=== PATIENT | female | born 1965 | race Caucasian/White ===

== ENCOUNTER 2022-09-28 05:12 | Inpatient (IN) | payer MEDICAID ==
[2022-09-21 16:05] LABS: BASOPHILS # (AUTO) 0.1 X10'3 (0-0.2); BASOPHILS % (AUTO) 1.2 % (0-1); EOSINOPHILS # (AUTO) 0.2 X10'3 (0-0.9); EOSINOPHILS % (AUTO) 3.2 % (0-6); LYMPHOCYTES % (AUTO) 33.6 % (21-51); MEAN CORPUSCULAR HEMOGLOBIN 29.6 PG (27.0-31.0); MEAN CORPUSCULAR HGB CONC 33.3 g/dL (33.0-36.5); MEAN CORPUSCULAR VOLUME 89.1 FL (78-98); MEAN PLATELET VOLUME 8.2 FL (7.4-10.4); MONOCYTES # (AUTO) 0.5 X10'3 (0-0.9); MONOCYTES % (AUTO) 9.5 % (2-12); NEUTROPHILS # (AUTO) 3.1 X10'3 (1.8-7.7); NEUTROPHILS % (AUTO) 52.5 % (42-75); PRE OP HEMATOCRIT 44.3 % (35.0-45.0); PRE OP HEMOGLOBIN 14.8 g/dL (12.0-16.0); PRE OP PLATELET COUNT 264 X10'3 (140-440); RED BLOOD COUNT 4.98 X10'6 (4.20-5.60); RED CELL DISTRIBUTION WIDTH 12.8 % (11.5-14.5)
[2022-09-21 16:18] LABS: ALBUMIN 4.4 G/DL (3.4-5.0); ALBUMIN/GLOBULIN RATIO 1.3 (1.1-1.5); ALKALINE PHOSPHATASE 69 IU/L (46-116); BLOOD UREA NITROGEN 18 MG/DL (7-18); BUN/CREATININE RATIO 20.9 (10.0-20.0); CALCIUM 9.3 MG/DL (8.5-10.1); CHLORIDE 105 MMOL/L (99-107); CREATININE 0.86 MG/DL (0.40-0.90); PRE OP ALT 25 U/L (30-65); PRE OP ANION GAP 11 (8-16); PRE OP AST 20 U/L (10-37); PRE OP BILIRUB, TOTAL 0.6 MG/DL (0.0-1.0); PRE OP GLUCOSE 82 MG/DL (70-104); PRE OP POTASSIUM 4.6 MMOL/L (3.4-5.1); PRE OP SODIUM 142 MMOL/L (135-145); TOTAL CARBON DIOXIDE 26.4 MMOL/L (24-32); TOTAL PROTEIN 7.8 G/DL (6.4-8.2); eGFR 68 ML/MIN
[2022-09-28] VITALS (20 sets, daily range): BP systolic 84–129; BP diastolic 50–91
[~2022-09-28] VITALS: Ht 160 cm; Wt 70.9 kg
[~2022-09-28 05:12] MED LIST: ASPI-1071 PO; CALC250T2 PO; CALC3.8S BOTHNARES; CYAN1TAB65 PO; FLUT16SP20 BOTHNARES; HYDR-3965 PO; IBUP-1984 PO; MULT-1085 PO; ringers solution, lacted 1,000 ML IV SCH
[2022-09-28] MEDS ORDERED: metoclopramide 5 mg/ml inj IV ONE (05:30)
[2022-09-28] MEDS ORDERED: acetaminophen 325mg tablet PO ONE (05:30)
[2022-09-28] MEDS ORDERED: tranexamic acid inj. 1,000 MG in normal saline IV soln 100ML IV ONE (05:30)
[2022-09-28] MEDS ORDERED: cefazolin 2gm/D5W 100mL 100 ML IV ONE (05:30)
[2022-09-28] MEDS ORDERED: vancomycin/NS 1 GM in NS 250 ML IV ONE (05:30)
[2022-09-28] MEDS ORDERED: celeCOXIB 100mg capsule PO ONE (05:30)
[2022-09-28] MEDS ORDERED: gabapentin 300mg capsule PO ONE (05:30)
[2022-09-28] MEDS ORDERED: oxyCODONE SR 10mg (sust. release) tab -2 tabs (20mg) PO ONE (05:30)
[2022-09-28] MEDS ORDERED: famotidine 20mg tablet PO ONE (05:30)
--- NOTE | 2022-09-28 05:30 | NUR ---
CSM: Pedal pulses present and marked. Mupirocin cream was not ordered for this patient. Patient read the brochure. Educated patient on the use of the IS and its importance. Hibiclens used for 5 days.
[2022-09-28] MEDS ORDERED: vancomycin 1,000mg inj ONE (06:40)
[2022-09-28] MEDS ORDERED: cloNIDine hcl/PF 100mcg/ml inj ONE (07:08)
[2022-09-28] MEDS ORDERED: fentaNYL/PF 50MCG/1 ML 2ML syringe ONE (07:10)
[2022-09-28] MEDS ORDERED: MIDAZolam 1 MG/ML 5ML VIAL ONE (07:11)
[2022-09-28] MEDS ORDERED: diphenhydrAMINE 25mg capsule PO PRN ×2 (07:25)
[2022-09-28] MEDS ORDERED: acetaminophen 325mg tablet PO PRN (07:25)
[2022-09-28] MEDS ORDERED: naloxone 0.4 mg/ml inj IV PRN (07:25)
[2022-09-28] MEDS ORDERED: magnesium hydroxide 30ml (MOM) UD suspension PO PRN (07:25)
[2022-09-28] MEDS ORDERED: HYDROcodone/acetaminophen 10/325mg tab PO PRN (07:25)
[2022-09-28] MEDS ORDERED: ondansetron/PF 4mg/2ml inj IV PRN ×2 (07:25→08:10)
[2022-09-28] MEDS ORDERED: HYDROmorphone inj. 0.5 MG/0.5 ML DISP.SYRIN IV PRN (07:25)
[2022-09-28] MEDS ORDERED: bisacodyl 10mg suppository rectal RC PRN (07:25)
[2022-09-28] MEDS ORDERED: meperidine/PF 25mg/ml syringe IV PRN ×3 (08:10)
[2022-09-28] MEDS ORDERED: proCHLORperazine 10 MG/2 ml inj IV PRN (08:10)
[2022-09-28] MEDS ORDERED: morphine 4 MG/ML inj SYRINge IV PRN (08:10)
[2022-09-28] MEDS ORDERED: ROPIVAcaine 0.2% (10 MG/5 ML) BOLUS INJECTION ADDCANAL PRN (08:10)
[2022-09-28] MEDS ORDERED: ringers solution, lacted 1,000 ML IV SCH (08:10)
[2022-09-28] MEDS ORDERED: morphine 2 MG/ML inj. syringe IV PRN (08:10)
[2022-09-28] MEDS ORDERED: ePHEDrine 50MG/ML INJ. ONE (08:41)
[2022-09-28] MEDS ORDERED: ROPIVAcaine 0.5% (5mg/ml) 30ml vial ONE (08:41)
[2022-09-28] MEDS ORDERED: propofol inj 20 ML IV ONE (08:41)
[2022-09-28] MEDS ORDERED: dexamethasone sod phosphate 4mg/ml inj. ONE (08:41)
--- NOTE | 2022-09-28 09:05 | NUR ---
Received from OR via HOSPITAL BED TO RR 7, accompanied by Anesthesiologist DR DOHERTY and report given by Anesthesiolgist. PT PRESENTS WITH 20G RIGHT HAND, LR RUNNING AT 100MLS/HR, RIGHT LEG SILVER WRAP WITH LATOSHA DRESSING AND ON-Q READYK POWDER PACK. PEDAL PULSE PALPABLE ON RIGHT FOOT, SPO2 95 3L NASAL CANULA, VSS. Addendum: 09/28/22 at 2812 by Yael Ivey RN, RN Amended: Links added.
[2022-09-28] MEDS: ROPIVAcaine 0.2%/PF PUMP/bolus 545 ML ADDCANAL SCH (09:41)
--- NOTE | 2022-09-28 10:25 | NUR ---
Report called to receiving nurse HOANG ABBASI. Transferred via HOSPITAL BED TO ROOM 401. BED IN LOW LOCKED POSITION WITH CALL LIGHT IN REACH. PT HOOKED UP TO BEDSIDE VITALS MACHINE. TWO PT Belongings BAGS, 1 CANE, 1 BLACK BAG, FULL UPPER AND PATIAL LOWER DENTUR, AND GLASSES. CHART TAKEN TO NURSES STATION. Special Issues communicated to receiving nurse. Addendum: 09/28/22 at 1041 by Yael Ivey RN RN Amended: Links added.
--- NOTE | 2022-09-28 10:45 | NUR ---
Patient in room PAS IN 900. I have received report from aliya ABBASI and had the opportunity to ask questions and assume patient care.
[2022-09-28] MEDS ORDERED: tranexamic acid inj. 700 MG in normal saline 100ml IV soln 93 ML IV ONE (12:00)
--- NOTE | 2022-09-28 12:02 | NUR ---
Received from OR via HOSPITAL BED TO RR 7, accompanied by Anesthesiologist DR JUSTICE and report given by Anesthesiolgist. PT PRESENTS WITH PIV 20G RIGHT WRIST, ART LINE LEFT WRIST, [id number]% 6L MASK, LR RUNNING AT 100MLS/HR, RIGHT PEDAL PULSE PALPABLE, RIGHT GROIN SOFT NON TENDER, VSS. Addendum: 09/28/22 at 1220 by Yael Ivey RN, RN Amended: Links added.
[2022-09-28] MEDS: HYDROcodone/acetaminophen 10/325mg tab PO PRN (13:14)
[2022-09-28] MEDS: potassium cl 20mEq in 1/2 NS 1,000 ML IV SCH ×2 (13:14→19:00)
[2022-09-28] MEDS: ceFAZolin/D5W- 1GM premix 50 ML IV SCH (17:35)
[2022-09-28] MEDS: HYDROmorphone 1 mg/ml syringe IV PRN ×2 (17:35→21:50)
--- NOTE | 2022-09-28 18:30 | NUR ---
Patient in room ORTHO 4015. I have received report from AYLEEN Eaton and had the opportunity to ask questions and assume patient care.
--- NOTE | 2022-09-28 18:30 | NUR ---
Patient in room ORTHO 4015. I have received report from AYLEEN Eaton and had the opportunity to ask questions and assume patient care.
--- NOTE | 2022-09-28 19:06 | NUR ---
patient stable medicated for pain see EMAR. Report given to Jada ABBASI
[2022-09-28] MEDS ORDERED: vancomycin/NS 1 GM ADD-VANTAGE 250 ML IV SCH (20:00)
[2022-09-28] MEDS: ascorbic acid 500mg tablet PO SCH (20:28)
[2022-09-28] MEDS: gabapentin 300mg capsule PO SCH (20:28)
[2022-09-28] MEDS ORDERED: sennosides 8.6mg tablet PO SCH (21:00)
[2022-09-29] MEDS: ceFAZolin/D5W- 1GM premix 50 ML IV SCH (00:10)
[2022-09-29 01:46] VITALS: BP 109/69
[2022-09-29] MEDS: potassium cl 20mEq in 1/2 NS 1,000 ML IV SCH ×2 (02:50→05:57)
[2022-09-29] MEDS: HYDROcodone/acetaminophen 10/325mg tab PO PRN ×3 (04:08→15:14)
[2022-09-29 06:00] VITALS: BP 117/59
--- NOTE | 2022-09-29 06:26 | NUR ---
Problems reprioritized. Patient report given, questions answered & plan of care reviewed with AYLEEN Munoz.
--- NOTE | 2022-09-29 06:30 | NUR ---
Patient in room ORTHO 4015. I have received report from AYLEEN Elias and had the opportunity to ask questions and assume patient care.
--- NOTE | 2022-09-29 06:40 | NUR ---
Problems reprioritized. Patient report given, questions answered & plan of care reviewed with AYLEEN Munoz.
[2022-09-29 07:38] LABS: BASOPHILS % (AUTO) 0.2 % (0-1); EOSINOPHILS % (AUTO) 0.5 % (0-6); HEMATOCRIT 37.1 % (35.0-45.0); HEMOGLOBIN 12.2 g/dl (12.0-16.0); LYMPHOCYTES # (AUTO) 1.7 X10'3 (1.1-4.8); LYMPHOCYTES % (AUTO) 19.2 % (21-51); MEAN CORPUSCULAR HEMOGLOBIN 29.6 PG (27.0-31.0); MEAN CORPUSCULAR VOLUME 89.9 FL (78-98); MONOCYTES % (AUTO) 10.8 % (2-12); NEUTROPHILS # (AUTO) 6.2 X10'3 (1.8-7.7); NEUTROPHILS % (AUTO) 69.3 % (42-75); PLATELET COUNT 209 X10'3 (140-440); RED BLOOD COUNT 4.13 X10'6 (4.20-5.60); RED CELL DISTRIBUTION WIDTH 13.3 % (11.5-14.5)
[2022-09-29] MEDS ORDERED: fluticasone nasal spray 16GM bottle NS SCH (08:00)
[2022-09-29] MEDS ORDERED: calcitonin, salmon,Synth Nasal spray 200 units/actuation NS SCH (08:00)
[2022-09-29 08:13] LABS: ANION GAP 12 (8-16); CHLORIDE 107 MMOL/L (99-107); POTASSIUM 4.4 MMOL/L (3.5-5.1); SODIUM 141 MMOL/L (135-145)
[2022-09-29] MEDS: ascorbic acid 500mg tablet PO SCH ×2 (08:48→20:00)
[2022-09-29] MEDS: gabapentin 300mg capsule PO SCH ×3 (08:48→21:00)
[2022-09-29] MEDS: multivitamins, therapeutics tablet PO SCH (08:48)
[2022-09-29] MEDS: aspirin 325mg tablet PO SCH (08:48)
[2022-09-29] MEDS: docusate sod 100mg capsule PO SCH ×2 (08:50→20:00)
[2022-09-29] MEDS: HYDROmorphone 1 mg/ml syringe IV PRN ×3 (08:58→17:09)
[2022-09-29 10:00] VITALS: BP 95/64
--- NOTE | 2022-09-29 11:12 | NUR ---
Per EMR pt s/p right TKA. Written high protein nutrition therapy education with ONS coupons and RD contact information mailed to patient's home address found in EMR d/t short staffing. Will f/u for verbal education as able. Addendum: 09/29/22 at [address] Amended: Links added.
[2022-09-29 14:00] VITALS: BP 109/67
[2022-09-29 18:00] VITALS: BP_SYST 106; BP_SYST 109; BP_DIAS 65; BP_DIAS 67
--- NOTE | 2022-09-29 19:00 | NUR ---
Problems reprioritized. Patient report given, questions answered & plan of care reviewed with AYLEEN Lao.
--- NOTE | 2022-09-29 19:33 | NUR ---
Patient in room ORTHO 4013. I have received report from MARVEL ABBASI and had the opportunity to ask questions and assume patient care.
[2022-09-29] MEDS: celeCOXIB 100mg capsule PO SCH (20:00)
[2022-09-29 22:00] VITALS: BP 125/84
--- NOTE | 2022-09-29 23:21 | NUR ---
HS MEDS WERE SCANNED AND GIVEN BUT SHOWED NOT GIVEN. ADMINISTERED USING ADM BUTTON.
[2022-09-30] MEDS: HYDROcodone/acetaminophen 10/325mg tab PO PRN ×4 (03:37→18:16)
[2022-09-30 05:00] VITALS: BP 108/65
--- NOTE | 2022-09-30 06:37 | NUR ---
Problems reprioritized. Patient report given, questions answered & plan of care reviewed with MARVEL RN.
--- NOTE | 2022-09-30 07:00 | NUR ---
Patient in room ORTHO 4013. I have received report from AYLEEN Lao and had the opportunity to ask questions and assume patient care.
[2022-09-30] MEDS: HYDROmorphone 1 mg/ml syringe IV PRN ×4 (07:51→21:21)
[2022-09-30 09:23] LABS: BASOPHILS # (AUTO) 0.2 X10'3 (0-0.2); BASOPHILS % (AUTO) 1.4 % (0-1); EOSINOPHILS # (AUTO) 0.1 X10'3 (0-0.9); EOSINOPHILS % (AUTO) 0.6 % (0-6); HEMATOCRIT 35.8 % (35.0-45.0); HEMOGLOBIN 11.6 g/dl (12.0-16.0); LYMPHOCYTES # (AUTO) 0.8 X10'3 (1.1-4.8); LYMPHOCYTES % (AUTO) 6.6 % (21-51); MEAN CORPUSCULAR HEMOGLOBIN 29.4 PG (27.0-31.0); MEAN CORPUSCULAR HGB CONC 32.4 g/dL (33.0-36.5); MEAN CORPUSCULAR VOLUME 90.7 FL (78-98); MEAN PLATELET VOLUME 8.5 FL (7.4-10.4); MONOCYTES # (AUTO) 0.7 X10'3 (0-0.9); MONOCYTES % (AUTO) 5.4 % (2-12); NEUTROPHILS # (AUTO) 10.5 X10'3 (1.8-7.7); PLATELET COUNT 197 X10'3 (140-440); RED BLOOD COUNT 3.95 X10'6 (4.20-5.60); RED CELL DISTRIBUTION WIDTH 13.1 % (11.5-14.5); WHITE BLOOD COUNT 12.2 X10'3 (4.5-11.0)
[2022-09-30 10:00] VITALS: BP 130/69
[2022-09-30] MEDS: aspirin 325mg tablet PO SCH (10:13)
[2022-09-30] MEDS: celeCOXIB 100mg capsule PO SCH ×2 (10:13→18:15)
[2022-09-30] MEDS: docusate sod 100mg capsule PO SCH ×2 (10:13→18:16)
[2022-09-30] MEDS: ascorbic acid 500mg tablet PO SCH ×2 (10:14→18:16)
[2022-09-30] MEDS: gabapentin 300mg capsule PO SCH ×3 (10:14→21:20)
[2022-09-30] MEDS: multivitamins, therapeutics tablet PO SCH (10:14)
[2022-09-30] MEDS: ROPIVAcaine 0.2%/PF PUMP/bolus 545 ML ADDCANAL SCH (12:00)
[2022-09-30 18:00] VITALS: BP 95/59
[2022-09-30 22:00] VITALS: BP 101/66
[2022-10-01] MEDS: HYDROcodone/acetaminophen 10/325mg tab PO PRN ×6 (01:03→23:47)
[2022-10-01] MEDS: HYDROmorphone 1 mg/ml syringe IV PRN (03:57)
[2022-10-01 06:00] VITALS: BP 87/53
--- NOTE | 2022-10-01 06:30 | NUR ---
Problems reprioritized. Patient report given, questions answered & plan of care reviewed with AYLEEN Pina.
--- NOTE | 2022-10-01 06:41 | NUR ---
Patient in room ORTHO 4013. I have received report from MARVEL ABBASI and had the opportunity to ask questions and assume patient care.
[2022-10-01 07:53] LABS: BASOPHILS % (AUTO) 0.2 % (0-1); EOSINOPHILS # (AUTO) 0.5 X10'3 (0-0.9); EOSINOPHILS % (AUTO) 4.1 % (0-6); HEMATOCRIT 35.7 % (35.0-45.0); HEMOGLOBIN 11.8 g/dl (12.0-16.0); LYMPHOCYTES # (AUTO) 1.5 X10'3 (1.1-4.8); LYMPHOCYTES % (AUTO) 12.2 % (21-51); MEAN CORPUSCULAR HEMOGLOBIN 29.8 PG (27.0-31.0); MEAN CORPUSCULAR HGB CONC 32.9 g/dL (33.0-36.5); MEAN CORPUSCULAR VOLUME 90.5 FL (78-98); MEAN PLATELET VOLUME 8.9 FL (7.4-10.4); MONOCYTES # (AUTO) 0.7 X10'3 (0-0.9); MONOCYTES % (AUTO) 5.9 % (2-12); NEUTROPHILS # (AUTO) 9.3 X10'3 (1.8-7.7); NEUTROPHILS % (AUTO) 77.6 % (42-75); PLATELET COUNT 216 X10'3 (140-440); RED BLOOD COUNT 3.95 X10'6 (4.20-5.60)
[2022-10-01] MEDS: celeCOXIB 100mg capsule PO SCH ×2 (07:53→21:05)
[2022-10-01] MEDS: gabapentin 300mg capsule PO SCH ×3 (07:54→21:04)
[2022-10-01] MEDS: multivitamins, therapeutics tablet PO SCH (07:54)
[2022-10-01] MEDS: ascorbic acid 500mg tablet PO SCH ×2 (07:54→21:05)
[2022-10-01] MEDS: docusate sod 100mg capsule PO SCH ×2 (07:54→20:00)
[2022-10-01] MEDS: aspirin 325mg tablet PO SCH (07:54)
[2022-10-01 09:30] VITALS: BP 137/74
[2022-10-01 10:00] VITALS: BP 137/74
[2022-10-01 18:00] VITALS: BP 139/85
[2022-10-01] MEDS: ROPIVAcaine 0.2%/PF PUMP/bolus 545 ML ADDCANAL SCH (19:17)
[2022-10-01 22:00] VITALS: BP 113/81
[2022-10-02] MEDS: HYDROcodone/acetaminophen 10/325mg tab PO PRN ×4 (05:02→23:57)
[2022-10-02 06:00] VITALS: BP 142/81
--- NOTE | 2022-10-02 06:39 | NUR ---
I have received report from AYLEEN Leslie and had the opportunity to ask questions and assume patient care. No acute distress at this time.
[2022-10-02] MEDS: multivitamins, therapeutics tablet PO SCH (07:34)
[2022-10-02] MEDS: celeCOXIB 100mg capsule PO SCH ×2 (07:34→21:09)
[2022-10-02] MEDS: aspirin 325mg tablet PO SCH (07:34)
[2022-10-02] MEDS: gabapentin 300mg capsule PO SCH ×3 (07:34→21:09)
[2022-10-02] MEDS: ascorbic acid 500mg tablet PO SCH ×2 (07:34→21:09)
[2022-10-02] MEDS: docusate sod 100mg capsule PO SCH ×2 (07:34→21:09)
[2022-10-02 10:00] VITALS: BP 95/62
[2022-10-02 18:20] VITALS: BP 120/72
[2022-10-02 22:00] VITALS: BP 128/85
[2022-10-03] MEDS: HYDROcodone/acetaminophen 10/325mg tab PO PRN ×2 (05:09→10:51)
[2022-10-03 06:00] VITALS: BP 135/82
--- NOTE | 2022-10-03 06:30 | NUR ---
Patient in room ORTHO 4013. I have received report from Mariama RN and had the opportunity to ask questions and assume patient care.
[2022-10-03] MEDS: multivitamins, therapeutics tablet PO SCH (08:18)
[2022-10-03] MEDS: docusate sod 100mg capsule PO SCH (08:18)
[2022-10-03] MEDS: gabapentin 300mg capsule PO SCH (08:18)
[2022-10-03] MEDS: aspirin 325mg tablet PO SCH (08:19)
[2022-10-03] MEDS: ascorbic acid 500mg tablet PO SCH (08:19)
[2022-10-03] MEDS: celeCOXIB 100mg capsule PO SCH (08:20)
[2022-10-03] MEDS: ROPIVAcaine 0.2%/PF PUMP/bolus 545 ML ADDCANAL SCH (08:21)
[2022-10-03 10:00] VITALS: BP 104/77
--- NOTE | 2022-10-03 14:00 | NUR ---
I have reviewed and agree with interventions, assessments, and documentation by Fiona Shah LVN.
--- NOTE | 2022-10-03 14:05 | NUR ---
Patient discharged to [facility] and called report to Fidelia. IV removed by RN. All patient belongings were gathered. Patient alert and appropriate for transfer. Patient left with Jana cargo and personnel.
== END 2022-10-03 14:12 | DRG 326 ==
LOC: PAS IN 05:12 → ORTHO 4S 11:48
PROVIDERS: ADMIT Orthopaedic Surgery; ATTEND Orthopaedic Surgery
PROC: 0SRC0J9 Replacement of Right Knee Joint with Synthetic Substitute, Cemented, Open Approach (ICD-10-PCS; principal; 2022-09-28 07:16)
DX: M17.11 Unilateral primary osteoarthritis, right knee (principal); I69.354 Hemiplegia and hemiparesis following cerebral infarction affecting left non-dominant side
CPT/HCPCS: 36415; 73560; 80051; 80053; 82948; 85025; 86885; 86900; 86901; 87081; 97110; 97116; 97161; 97530; 97535; A4215; A6446; A7000; C1713; C1776; G0378; J0690; J0735; J1100; J1170; J2175; J2250; J2704; J2765; J2795; J3010; J3370; J3480; J3490; J7120

== ENCOUNTER 2023-06-28 18:22 | Emergency (ER) | payer MEDICAID ==
[~2023-06-28] VITALS: Ht 165.1 cm; Wt 68.6 kg
[~2023-06-28 18:22] MED LIST changes: -FLUT16SP20 BOTHNARES; +FLUT16SP35 BOTHNARES; -ringers solution, lacted 1,000 ML IV SCH
[2023-06-28 18:37] VITALS: BP 133/85; PULSE 90; RESP 18; TEMP 97.5; O2SAT 98
[2023-06-28] MEDS ORDERED: DEXAMETHASONE 6 MG TABLET PO SCH (19:05)
[2023-06-28] MEDS ORDERED: KEN0.1O TP (19:05)
[2023-06-28] MEDS ORDERED: DIPH50CA36 PO (19:06)
[2023-06-28] MEDS: DEXAMETHASONE 6 MG TABLET PO ONE (19:12)
[2023-06-28] MEDS: diphenhydrAMINE 25mg capsule PO ONE (19:13)
== END 2023-06-28 20:38 | disposition home or self-care (01) ==
LOC: ER 18:23
DX: S71.151A Open bite, right thigh, initial encounter (principal); Z79.82 Long term (current) use of aspirin; Z79.899 Other long term (current) drug therapy; Z79.1 Long term (current) use of non-steroidal anti-inflammatories (NSAID); W57.XXXA Bitten or stung by nonvenomous insect and other nonvenomous arthropods, initial encounter; Y93.89 Activity, other specified; Y92.89 Other specified places as the place of occurrence of the external cause; Y99.8 Other external cause status
CPT/HCPCS: 99283; Q0163; J8540

== ENCOUNTER 2023-07-22 09:06 | Emergency (ER) | payer MEDICAID ==
[~2023-07-22] VITALS: Ht 160 cm; Wt 64.0 kg
[~2023-07-22 09:06] MED LIST changes: +DIPH50CA36 PO
[2023-07-22 09:26] VITALS: BP 127/75; PULSE 89; TEMP 98; O2SAT 97
[2023-07-22 10:10] LABS: BILIRUBIN,URINE NEGATIVE (Neg); CLARITY,URINE CLEAR (Clear); COLOR,URINE YELLOW (Yellow); GLUCOSE, URINE NEGATIVE (Neg); KETONES,URINE NEGATIVE (Neg); LEUKOCYTE ESTERASE ,URINE NEGATIVE (Neg); NITRITES, URINE NEGATIVE (Neg); OCCULT BLOOD,URINE NEGATIVE (Neg); PH,URINE 6.5 (4.8-8.0); PROTEIN,URINE NEGATIVE (Neg); UROBILINOGEN,URINE 0.2 E.U/dL (0.2-1.0)
[2023-07-22 10:17] LABS: UA COLLECTION TYPE CLN CATCH MIDSTREAM
[2023-07-22 10:20] LABS: ALBUMIN 3.6 G/DL (3.4-5.0); ANION GAP 12 (8-16); BLOOD UREA NITROGEN 15 MG/DL (7-18); BUN/CREATININE RATIO 20.3 (10.0-20.0); CALCIUM 8.5 MG/DL (8.5-10.1); CHLORIDE 109 MMOL/L (99-107); CREATININE 0.74 MG/DL (0.40-0.90); GLUCOSE 105 MG/DL (70-104); LIPASE 53 U/L (16-77); POTASSIUM 3.9 MMOL/L (3.5-5.1); SODIUM 143 MMOL/L (135-145); eCRCL 69 ML/MIN; eGFR 81 ML/MIN
[2023-07-22 10:21] LABS: BASOPHILS % (AUTO) 0.8 % (0-1); EOSINOPHILS # (AUTO) 0.1 X10'3 (0-0.9); EOSINOPHILS % (AUTO) 1.9 % (0-6); HEMOGLOBIN 13.6 g/dl (12.0-16.0); LYMPHOCYTES # (AUTO) 1.2 X10'3 (1.1-4.8); LYMPHOCYTES % (AUTO) 20.2 % (21-51); MEAN CORPUSCULAR HEMOGLOBIN 29.8 PG (27.0-31.0); MEAN CORPUSCULAR HGB CONC 33.2 g/dL (33.0-36.5); MEAN CORPUSCULAR VOLUME 89.7 FL (78-98); MEAN PLATELET VOLUME 8.3 FL (7.4-10.4); MONOCYTES # (AUTO) 0.5 X10'3 (0-0.9); MONOCYTES % (AUTO) 7.6 % (2-12); NEUTROPHILS # (AUTO) 4.3 X10'3 (1.8-7.7); NEUTROPHILS % (AUTO) 69.5 % (42-75); PLATELET COUNT 306 X10'3 (140-440); RED BLOOD COUNT 4.57 X10'6 (4.20-5.60); RED CELL DISTRIBUTION WIDTH 13.1 % (11.5-14.5); WHITE BLOOD COUNT 6.2 X10'3 (4.5-11.0)
[2023-07-22] MEDS ORDERED: CYCL-1 PO (10:27)
[2023-07-22] MEDS ORDERED: NAPR-56 PO (10:27)
[2023-07-22 10:46] VITALS: RESP 16
[2023-07-22] MEDS: diazepam inj 5 MG/ML inj. IM ONE (10:46)
[2023-07-22] MEDS: ketorolac tromethamine 15mg/ml inj. IM ONE (10:46)
== END 2023-07-22 11:08 | disposition home or self-care (01) ==
LOC: ER 09:06
DX: S39.012A Strain of muscle, fascia and tendon of lower back, initial encounter (principal); Z79.82 Long term (current) use of aspirin; Z79.899 Other long term (current) drug therapy; X58.XXXA Exposure to other specified factors, initial encounter; Y93.89 Activity, other specified; Y92.89 Other specified places as the place of occurrence of the external cause; Y99.8 Other external cause status
CPT/HCPCS: 36415; 80048; 81003; 83690; 85025; 96372; 99284; J1885; J3360

== ENCOUNTER 2023-10-02 11:56 | Outpatient (CLI) | payer MEDICAID ==
[~2023-10-02 11:56] MED LIST changes: +CYCL-1 PO
== END 2023-10-02 23:59 | disposition home or self-care (01) ==
LOC: MRI 11:56
PROVIDERS: ATTEND Student in an Organized Health Care Education/Training Program
DX: M51.36 Other intervertebral disc degeneration, lumbar region (principal); M54.50 Low back pain, unspecified; M43.8X6 Other specified deforming dorsopathies, lumbar region; M47.816 Spondylosis without myelopathy or radiculopathy, lumbar region; M48.061 Spinal stenosis, lumbar region without neurogenic claudication; M48.56XA Collapsed vertebra, not elsewhere classified, lumbar region, initial encounter for fracture
CPT/HCPCS: 72148

== ENCOUNTER 2023-10-11 09:09 | Emergency (ER) | payer MEDICAID ==
[~2023-10-11] VITALS: Ht 160 cm; Wt 69.1 kg
[2023-10-11] MEDS: morphine 10mg/ml inj. IM ONE (10:34)
[2023-10-11 10:44] VITALS: BP 136/89; PULSE 69; RESP 18; TEMP 98; O2SAT 98
== END 2023-10-11 10:48 | disposition home or self-care (01) ==
LOC: ER 09:09
DX: G89.29 Other chronic pain (principal); M54.50 Low back pain, unspecified; Z79.82 Long term (current) use of aspirin; Z79.899 Other long term (current) drug therapy
CPT/HCPCS: 96372; 99284; J2274

== ENCOUNTER 2023-10-25 06:59 | Emergency (ER) | payer MEDICAID ==
[~2023-10-25] VITALS: Ht 160 cm; Wt 70.5 kg
[2023-10-25] MEDS: morphine 10mg/ml inj. IM ONE (07:52)
[2023-10-25 07:57] VITALS: BP 124/97; PULSE 75; TEMP 97.5; O2SAT 96
[2023-10-25 08:07] VITALS: RESP 16
[2023-10-25] MEDS: ketorolac trometh. 30mg/ml inj. IM ONE (08:07)
== END 2023-10-25 08:37 | disposition home or self-care (01) ==
LOC: ER 07:00
DX: G89.29 Other chronic pain (principal); M54.9 Dorsalgia, unspecified; Z79.82 Long term (current) use of aspirin; Z79.899 Other long term (current) drug therapy; Z79.51 Long term (current) use of inhaled steroids; Z98.890 Other specified postprocedural states
CPT/HCPCS: 96372; 99283; J2274

== ENCOUNTER 2024-02-03 14:51 | Emergency (ER) | payer MEDICAID ==
[~2024-02-03] VITALS: Ht 160 cm; Wt 65.0 kg
[2024-02-03 15:50] LABS: BASOPHILS # (AUTO) 0.1 X10'3 (0-0.2); BASOPHILS % (AUTO) 0.9 % (0-1); EOSINOPHILS # (AUTO) 0.1 X10'3 (0-0.9); EOSINOPHILS % (AUTO) 1.3 % (0-6); HEMATOCRIT 42.7 % (35.0-45.0); LYMPHOCYTES # (AUTO) 1.8 X10'3 (1.1-4.8); LYMPHOCYTES % (AUTO) 26.7 % (21-51); MEAN CORPUSCULAR HEMOGLOBIN 29.5 PG (27.0-31.0); MEAN CORPUSCULAR HGB CONC 32.8 g/dL (33.0-36.5); MEAN CORPUSCULAR VOLUME 89.9 FL (78-98); MEAN PLATELET VOLUME 8.8 FL (7.4-10.4); MONOCYTES # (AUTO) 0.6 X10'3 (0-0.9); NEUTROPHILS # (AUTO) 4.1 X10'3 (1.8-7.7); NEUTROPHILS % (AUTO) 62.1 % (42-75); PLATELET COUNT 255 X10'3 (140-440); RED BLOOD COUNT 4.75 X10'6 (4.20-5.60); RED CELL DISTRIBUTION WIDTH 13.1 % (11.5-14.5); WHITE BLOOD COUNT 6.6 X10'3 (4.5-11.0)
[2024-02-03 15:58] LABS: ALBUMIN 4.2 G/DL (3.4-5.0); ANION GAP 8 (8-16); BLOOD UREA NITROGEN 18 MG/DL (7-18); BUN/CREATININE RATIO 19.4 (10.0-20.0); CALCIUM 9.2 MG/DL (8.5-10.1); CHLORIDE 104 MMOL/L (99-107); CREATININE 0.93 MG/DL (0.40-0.90); GLUCOSE 115 MG/DL (70-104); LIPASE 88 U/L (16-77); POTASSIUM 4.4 MMOL/L (3.5-5.1); SODIUM 138 MMOL/L (135-145); TOTAL CARBON DIOXIDE 26.1 MMOL/L (24-32); eCRCL 54 ML/MIN; eGFR 62 ML/MIN
[2024-02-03] MEDS ORDERED: HYDR-3965 PO (20:15)
[2024-02-03] MEDS: HYDROcodone/acetaminophen 10/325mg tab PO ONE (20:25)
[2024-02-03 20:26] VITALS: BP 100/87; PULSE 78; RESP 16; TEMP 97.8; O2SAT 100
[2024-02-03] MEDS: ketorolac trometh 30MG/ML vial 30 MG/ML VIAL IM ONE (20:54)
== END 2024-02-03 21:07 | disposition home or self-care (01) ==
LOC: ER 14:52
DX: M94.0 Chondrocostal junction syndrome [Tietze] (principal); R07.81 Pleurodynia; R10.9 Unspecified abdominal pain; Z88.5 Allergy status to narcotic agent; Z88.6 Allergy status to analgesic agent
CPT/HCPCS: 36415; 74176; 80048; 83690; 84484; 85025; 96372; 99285; J1885; J7030

== ENCOUNTER 2024-04-16 13:36 | Emergency (ER) | payer MEDICAID ==
[~2024-04-16] VITALS: Ht 167.6 cm; Wt 72.7 kg
[2024-04-16] MEDS ORDERED: ERYT1OIN6 EACHEYE (15:50)
[2024-04-16 15:58] VITALS: BP 134/78; PULSE 78; RESP 16; TEMP 98.5; O2SAT 98
== END 2024-04-16 15:59 | disposition home or self-care (01) ==
LOC: ER 13:36
DX: H00.014 Hordeolum externum left upper eyelid (principal); G89.29 Other chronic pain; M54.9 Dorsalgia, unspecified; Z79.82 Long term (current) use of aspirin; Z79.899 Other long term (current) drug therapy
CPT/HCPCS: 99283

== ENCOUNTER 2024-05-10 08:23 | Emergency (ER) | payer MEDICAID ==
[~2024-05-10] VITALS: Ht 160 cm; Wt 65.9 kg
[~2024-05-10 08:23] MED LIST changes: +ERYT1OIN6 EACHEYE
[2024-05-10 08:24] VITALS: PULSE 76; RESP 16; TEMP 98; O2SAT 98
[2024-05-10] MEDS ORDERED: CLIN-214 PO (08:37)
[2024-05-10] MEDS: clindamycin 150mg capsule PO ONE (08:51)
== END 2024-05-10 08:54 | disposition home or self-care (01) ==
LOC: ER 08:24
DX: L03.011 Cellulitis of right finger (principal); G89.29 Other chronic pain; M54.9 Dorsalgia, unspecified; Z79.82 Long term (current) use of aspirin; Z79.52 Long term (current) use of systemic steroids; Z79.899 Other long term (current) drug therapy
CPT/HCPCS: 99283

== ENCOUNTER 2024-05-23 07:28 | Emergency (ER) | payer MEDICAID ==
[~2024-05-23] VITALS: Ht 160 cm; Wt 69.0 kg
[~2024-05-23 07:28] MED LIST changes: +CLIN-214 PO; -ERYT1OIN6 EACHEYE
[2024-05-23] MEDS ORDERED: RIFA300C65 PO (07:59)
[2024-05-23] MEDS: diphenhydrAMINE 25mg capsule PO ONE (08:15)
[2024-05-23] MEDS: rifampin 300mg capsule PO SCH (08:16)
[2024-05-23] MEDS: acetaminophen 325mg tablet PO ONE (08:16)
[2024-05-23] MEDS: ketorolac trometh 30MG/ML vial 30 MG/ML VIAL IM ONE (08:17)
[2024-05-23 08:23] VITALS: BP 155/95; PULSE 91; RESP 16; TEMP 98.3; O2SAT 98
[2024-05-23 09:10] LABS: URINE AMPHETAMINE SCREEN NEGATIVE (Neg); URINE BARBITUATE SCREEN NEGATIVE (Neg); URINE BENZODIAZEPINES SCREEN NEGATIVE (Neg); URINE CANNABINOID SCREEN NEGATIVE (Neg); URINE COCAINE SCREEN NEGATIVE (Neg); URINE METHADONE SCREEN NEGATIVE (Neg); URINE OPIATE SCREEN POSITIVE (Neg); URINE PHENCYCLIDINE SCREEN NEGATIVE (Neg)
[2024-05-24] MEDS ORDERED: AMOX-580 PO (09:15)
== END 2024-05-23 08:26 | disposition home or self-care (01) ==
LOC: ER 07:29
DX: K13.0 Diseases of lips (principal); G89.29 Other chronic pain; M54.9 Dorsalgia, unspecified; Z79.82 Long term (current) use of aspirin; Z79.899 Other long term (current) drug therapy; Z98.890 Other specified postprocedural states
CPT/HCPCS: 80305; 96372; 99284; J1885; Q0163

== ENCOUNTER 2024-05-24 08:14 | Emergency (ER) | payer MEDICAID ==
[~2024-05-24] VITALS: Ht 160 cm; Wt 70.0 kg
[~2024-05-24 08:14] MED LIST changes: +RIFA300C65 PO
[2024-05-24 08:20] VITALS: BP 131/81; PULSE 77; RESP 18; TEMP 98.2; O2SAT 97
[2024-05-24] MEDS: LIDOcaine 1% W/epiNEPHrine 1:100,000 20ml vial IJ ONE (09:12)
[2024-05-24] MEDS ORDERED: AMOX-580 PO (09:15)
[2024-05-24] MEDS ORDERED: ketorolac trometh 15mg/ml vial 15 MG/ML ML IM ONE (09:35)
== END 2024-05-24 17:09 | disposition home or self-care (01) ==
LOC: ER 08:14
DX: K13.0 Diseases of lips (principal); G89.29 Other chronic pain; M54.9 Dorsalgia, unspecified; Z79.52 Long term (current) use of systemic steroids; Z79.899 Other long term (current) drug therapy; Z79.82 Long term (current) use of aspirin; Z98.890 Other specified postprocedural states
CPT/HCPCS: 10060; 99284; J3490

== ENCOUNTER 2024-06-20 09:56 | Emergency (ER) | payer MEDICAID ==
[~2024-06-20] VITALS: Ht 160 cm; Wt 67.9 kg
[~2024-06-20 09:56] MED LIST changes: +AMOX-580 PO
[2024-06-20 10:00] VITALS: BP 138/72; PULSE 75; RESP 16; TEMP 98.5; O2SAT 98
[2024-06-20] MEDS ORDERED: GABA300C PO (10:27)
[2024-06-20] MEDS ORDERED: CYCL-394 PO (10:27)
[2024-06-20] MEDS: cyclobenzaprine 10mg tablet PO ONE (10:29)
[2024-06-20] MEDS: gabapentin 400mg capsule PO ONE (10:30)
== END 2024-06-20 10:30 | disposition home or self-care (01) ==
LOC: ER 09:58
DX: S39.012A Strain of muscle, fascia and tendon of lower back, initial encounter (principal); G89.29 Other chronic pain; M54.9 Dorsalgia, unspecified; Z98.890 Other specified postprocedural states; Z79.82 Long term (current) use of aspirin; Z79.52 Long term (current) use of systemic steroids; Z79.899 Other long term (current) drug therapy; X58.XXXA Exposure to other specified factors, initial encounter; Y93.89 Activity, other specified; Y92.89 Other specified places as the place of occurrence of the external cause; Y99.8 Other external cause status
CPT/HCPCS: 99283

== ENCOUNTER 2024-07-29 08:54 | Emergency (ER) | payer MEDICAID ==
[~2024-07-29] VITALS: Ht 160 cm; Wt 67.3 kg
[~2024-07-29 08:54] MED LIST changes: -AMOX-580 PO; +GABA300C PO
[2024-07-29 09:03] VITALS: BP 114/95; PULSE 78; TEMP 97.6; O2SAT 98
--- NOTE | 2024-07-29 09:16 | Physician Documentation ---
History of Present Illness ~ Chief Complaint: Back Pain Stated Complaint: BACK PAIN Time Seen by MD: 09:22 Primary Medical Doctor: glen WOODRUFF 58-year-old female presents to the ED with a complaint of chronic back pain. States she has a history of TBI in his supposed to see a neurologist for her back pain in his developed increased pain with ambulation. Denies any red flag symptoms including incontinence fevers or chills. Does report tingling to both legs. Medication Reconciliation Allergies: Coded Allergies: No Known Drug Allergies (Verified Allergy, Unknown, 07/29/24) Scheduled Aspirin (Ecotrin*), 1 TAB.EC PO DAILY, (Reported) Calcitonin,[place],Synthetic (Calcitonin-[place]), 1 SPRAYS BOTHNARES DAILY, (Reported) Calcium Citrate (Calcium Citrate), 1 TAB PO DAILY, (Reported) Clindamycin HCl (Clindamycin HCl CAPSULE), 2 CAP PO BID Cyanocobalamin/Cobamamide (Vitamin B-12 5,000 Mcg Tab Sl), 1 TAB PO DAILY, (Reported) Cyclobenzaprine* (Cyclobenzaprine*), 1 TAB PO TID Diphenhydramine HCl (Diphenhydramine HCl), 1 CAP PO Q8H Fluticasone Propionate (Fluticasone Propionate), 1 SPRAY BOTHNARES DAILY, (Reported) Gabapentin (Neurontin), 1 CAP PO Q8H Multivitamin (Multi Vitamin Daily), 1 EACH PO DAILY, (Reported) Rifampin (Rifampin), 1 CAP PO Q12H Scheduled PRN Hydrocodone Bit/Acetaminophen 5/325 MG ([place] 5/325 MG), 1 TABLET PO TID PRN for pain, (Reported) Ibuprofen* (Motrin*), 800 MG PO Q12H PRN for pain, (Reported) Past Medical History Past Medical History: *[employer]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*, Chronic Back Pain Past Surgical History: orthopedic surgeries Alcohol Use: None Lives In: Home Review of Systems All Other Systems at this time: Reviewed and Negative Physical Exam Physical Exam Vital Signs: RN Vital Signs have been reviewed: Yes, Temperature: 97.6, Source: Temporal, Heart Rate: 78, Respiratory Rate: 18, BP: 114/95, Pulse Oximetry: 98, Weight: 67.270 Physical Exam HEENT: PERRL, moist oral mucosa, EOMI Pulmonary: No respiratory distress Skin: w/d/i, no rash Neuro: alert, nonfocal Psych: normal affect Progress Results/Orders Results/Orders Completed Orders - ANNAMARIE SINGER MD Oxycodone Immed Release Tablet (Oxy Ir T (07/29/24 09:35) Medications Received in ER Medications (Trade) Dose Ordered Sig/Butch Route PRN Reason Start Time Stop Time Status Last Admin Dose Admin (OXY IR tablet) 10 mg ONCE ONCE PO 07/29/24 09:35 07/29/24 09:37 DC 07/29/24 09:48 10 MG Vital Signs 07/29/24 07/29/24 09:03 09:48 Temp 97.6 Pulse 78 Resp 18 15 B/P (MAP) 114/95 Pulse Ox 98 Departure Disposition: 01 HOME / SELF CARE / HOMELESS Impression: Primary Impression: Back pain Condition: Stable Discharge Instructions: Chronic Back Pain Referrals: NO PRIMARY CARE PROVIDER (PCP) Prescriptions Oxycodone Hcl IR* (Oxycodone IR*) 5 Mg Tablet 1 TAB PO QID PRN PRN for pain for 5 Days, #20 TAB Prov: ANNAMARIE SINGER MD 07/29/24 Education Educated: Patient, Family Educated regarding: diagnosis, treatment, prognosis, need for follow up Signature Scribe Signature: . Attestation: . ARMEN COSBY NP July 29, 2024 09:16 ANNAMARIE SINGER MD July 29, 2024 10:16
[2024-07-29 09:48] VITALS: RESP 15
[2024-07-29] MEDS: oxyCODONE IR 5mg (immed. release) tablet PO ONE (09:48)
[2024-07-29] MEDS ORDERED: OXYC-658 PO (10:15)
== END 2024-07-29 10:26 | disposition home or self-care (01) ==
LOC: ER 08:55
DX: M54.9 Dorsalgia, unspecified (principal); Z79.899 Other long term (current) drug therapy; Z79.82 Long term (current) use of aspirin; Z98.890 Other specified postprocedural states
CPT/HCPCS: 99284